=== PATIENT | female | born 1985 | race Caucasian/White ===

== ENCOUNTER 2024-03-31 20:35 | Inpatient (IN) | payer MEDICAID ==
[~2024-03-31] VITALS: Ht 160 cm; Wt 156.0 kg
[2024-03-31 22:39] LABS: BASOPHILS % (AUTO) 0.5 % (0.0-2.0); EOSINOPHILS % (AUTO) 2.1 % (1.0-6.0); HEMATOCRIT 32.2 % (36-46); HEMOGLOBIN 10.3 g/dL (12.0-16.0); LYMPHOCYTES # (AUTO) 3.2 K/uL (1.0-4.8); LYMPHOCYTES % (AUTO) 26.5 % (22.0-44.0); MEAN CORPUSCULAR HEMOGLOBIN 26.2 pg (26.0-34.0); MEAN CORPUSCULAR VOLUME 82 fL (80-100); MONOCYTES # (AUTO) 0.8 K/uL (0.1-1.0); MONOCYTES % (AUTO) 6.9 % (2.0-9.0); NEUTROPHILS # (AUTO) 7.8 K/uL (1.8-7.7); PLATELET COUNT (AUTO) 362 K/uL (150-450); RED BLOOD CELL COUNT(AUTO) 3.93 MIL/uL (4.00-5.20); RED CELL DISTRIBUTION WIDTH 18.2 % (11.5-14.5); WHITE BLOOD COUNT (AUTO) 12.2 K/uL (4.5-11.0)
[2024-03-31 22:52] LABS: ANION GAP 7 mmol/L (8-16); CALCIUM, TOTAL 8.2 mg/dL (8.8-10.5); CARBON DIOXIDE 27 mmol/L (22-29); CHLORIDE 102 mmol/L (98-107); CREATININE 0.69 mg/dL (0.60-1.30); GLOMERULAR FILTR. RATE CALC > 60 mL/min (>60); GLUCOSE,RANDOM 139 mg/dL (70-110); POTASSIUM 4.1 mmol/L (3.5-5.1); SODIUM SERUM 136 mmol/L (136-145); UREA NITROGEN, BLOOD 23 mg/dL (7-18)
[2024-03-31 23:11] LABS: ALCOHOL, BLOOD (SERUM) < 3 mg/dL (0-10)
[2024-04-01 01:51] LABS: COVID AG,FIA SOURCE NASAL SWAB
[2024-04-01] MEDS: MELATONIN 3 MG TABLET PO ONE (01:53)
[2024-04-01 01:58] LABS: SARS-COV2 (COVID) ANTIGEN,FIA Negative (Negative)
[2024-04-01] MEDS: LORazepam 1 MG TABLET PO ONE (02:48)
[2024-04-01 03:08] LABS: PH,URINE DRUG SCREEN 6.5 (5.0-8.0)
[2024-04-01 03:14] LABS: ALCOHOL, URINE DRUG SCREEN NEGATIVE (NEGATIVE); AMPHET/METH SCREEN,URINE NEGATIVE (NEGATIVE); BARBITURATE SCREEN, URINE NEGATIVE (NEGATIVE); BENZODIAZEPINES SCREEN,URINE NEGATIVE (NEGATIVE); CANNABINOID SCREEN,URINE NEGATIVE (NEGATIVE); COCAINE SCREEN,URINE NEGATIVE (NEGATIVE); METHADONE SCREEN, URINE NEGATIVE (NEGATIVE); OPIATE SCREEN,URINE NEGATIVE (NEGATIVE); PHENCYCLIDINE SCREEN,URINE NEGATIVE (NEGATIVE)
[2024-04-01] MEDS: QUEtiapine FUMARATE 25 MG TABLET PO ONE (04:15)
[2024-04-01] MEDS: QUEtiapine FUMARATE 100 MG TABLET PO ONE (10:52)
[2024-04-01] MEDS: IBUPROFEN 600 MG TABLET PO ONE (10:52)
[2024-04-01 16:26] VITALS: BP 121/76; PULSE 121; RESP 18; TEMP 98.4
[2024-04-01] MEDS: LORazepam 2 MG TABLET PO PRN (20:19)
[2024-04-01] MEDS: ZOLPIDEM TARTRATE 10 MG TABLET PO PRN (20:40)
[2024-04-01 23:28] VITALS: BP 120/77; PULSE 99; RESP 18; TEMP 98
[2024-04-02] MEDS: HALOPERIDOL 5 MG TABLET PO PRN (04:09)
[2024-04-02] MEDS ORDERED: CloNIDine HCL 0.1 MG TABLET PO PRN (08:15)
[2024-04-02] MEDS ORDERED: MAG HYDROX/ALUMINUM HYD/SIMETH ES 30 ML SUSPENSION UDCUP PO PRN (08:15)
[2024-04-02] MEDS ORDERED: PETROLATUM,WHITE 28 GM JELLY TP PRN (08:15)
[2024-04-02] MEDS ORDERED: GuaiFENesin/D-METHORPHAN [SUGAR-FREE] 200-20MG/10 ML SYRUP UDCUP PO PRN (08:15)
[2024-04-02] MEDS ORDERED: DOCUSATE SODIUM 100 MG CAPSULE PO PRN (08:15)
[2024-04-02] MEDS ORDERED: ACETAMINOPHEN 325 MG TABLET PO PRN (08:15)
[2024-04-02] MEDS ORDERED: ALBUTEROL SULFATE HFA 90 MCG/PUFF 8 GM INHALER IH PRN (08:15)
[2024-04-02] MEDS ORDERED: NICOTINE 14 MG/24 HOUR PATCH TD PRN (08:15)
[2024-04-02] MEDS ORDERED: LOPERAMIDE HCL 2 MG CAPSULE PO PRN (08:15)
[2024-04-02] MEDS ORDERED: MAGNESIUM HYDROXIDE SUSPENSION 30 ML UDCUP PO PRN (08:15)
[2024-04-02] MEDS ORDERED: ONDANSETRON HCL 4 MG TABLET PO PRN (08:15)
[2024-04-02 08:49] VITALS: BP 115/74; PULSE 110; RESP 18; TEMP 98.4
[2024-04-02] MEDS: QUEtiapine FUMARATE 100 MG TABLET PO PRN (17:43)
[2024-04-02] MEDS ORDERED: DiphenhydrAMINE HCL 50 MG/ML VIAL ONE (18:16)
[2024-04-02] MEDS ORDERED: ChlorproMAZINE HCL 50 MG/2 ML AMP ONE (18:16)
[2024-04-02] MEDS: ChlorproMAZINE HCL 50 MG/2 ML AMP IM ONE (19:33)
[2024-04-02] MEDS: DiphenhydrAMINE HCL 50 MG/ML VIAL IM ONE (19:33)
[2024-04-02 20:00] VITALS: BP 114/67; PULSE 114; RESP 16; TEMP 96.6; O2SAT 97
[2024-04-02] MEDS: TraZODone HCL 150 MG TABLET PO SCH (21:00)
[2024-04-02] MEDS: ARIPiprazole 15 MG TABLET PO SCH (21:52)
[2024-04-03 03:08] VITALS: BP 144/86; PULSE 111; RESP 20; TEMP 98.1; O2SAT 97
[2024-04-03 08:43] VITALS: BP 118/77; PULSE 116; RESP 16; TEMP 98.1; O2SAT 98
[2024-04-03 08:43] LABS: HEMOGLOBIN A1C 7.1 % (3.8-5.6)
[2024-04-03 09:03] LABS: CHOL/HDL RATIO 3.7 (3.9-5.7); THYROID STIMULATING HORMONE 3.84 uIU/mL (0.36-3.74)
[2024-04-03] MEDS: TOPIRAMATE 100 MG TABLET PO SCH (12:54)
[2024-04-03] MEDS: GABAPENTIN 300 MG CAPSULE PO SCH (12:54)
[2024-04-03] MEDS: LORazepam 2 MG/ML VIAL IM ONE (14:03)
[2024-04-03] MEDS: HALOPERIDOL LACTATE 5 MG/ML VIAL IM ONE (14:03)
[2024-04-03] MEDS: DiphenhydrAMINE HCL 50 MG/ML VIAL IM ONE (14:03)
[2024-04-03 20:44] VITALS: BP 121/67; PULSE 105; RESP 18; TEMP 98.1; O2SAT 97
[2024-04-04 01:50] VITALS: BP 119/71; RESP 18
[2024-04-04] MEDS: IBUPROFEN 400 MG TABLET PO PRN (01:55)
[2024-04-04 08:15] VITALS: BP 108/77; PULSE 78; RESP 22; TEMP 98; O2SAT 99
[2024-04-04 11:09] VITALS: RESP 22; O2SAT 99
[2024-04-04 12:09] VITALS: RESP 21; O2SAT 99
[2024-04-04 20:00] VITALS: BP 112/75; PULSE 90; RESP 20; TEMP 97.4; O2SAT 97
[2024-04-05 08:19] LABS: BASOPHILS % (AUTO) 0.7 % (0.0-2.0); HEMATOCRIT 35.9 % (36-46); HEMOGLOBIN 11.5 g/dL (12.0-16.0); LYMPHOCYTES # (AUTO) 2.1 K/uL (1.0-4.8); LYMPHOCYTES % (AUTO) 19.9 % (22.0-44.0); MEAN CORPUSCULAR HEMOGLOBIN 26.7 pg (26.0-34.0); MEAN CORPUSCULAR VOLUME 83 fL (80-100); MONOCYTES # (AUTO) 0.7 K/uL (0.1-1.0); MONOCYTES % (AUTO) 6.7 % (2.0-9.0); NEUTROPHILS # (AUTO) 7.3 K/uL (1.8-7.7); NEUTROPHILS % (AUTO) 69.7 % (40.0-70.0); PLATELET COUNT (AUTO) 409 K/uL (150-450); RED BLOOD CELL COUNT(AUTO) 4.31 MIL/uL (4.00-5.20); RED CELL DISTRIBUTION WIDTH 18.1 % (11.5-14.5); WHITE BLOOD COUNT (AUTO) 10.5 K/uL (4.5-11.0)
[2024-04-05 08:29] LABS: APPEARANCE,URINE CLEAR (CLEAR); BILIRUBIN,URINE NEGATIVE (NEGATIVE); COLOR,URINE LIGHT YELLOW (YELLOW); GLUCOSE, URINE (UA) NEGATIVE (NEGATIVE); KETONES,URINE NEGATIVE (NEGATIVE); LEUKOCYTE ESTERASE ,URINE NEGATIVE (NEGATIVE); NITRATE,URINE NEGATIVE (NEGATIVE); OCCULT BLOOD,URINE NEGATIVE (NEGATIVE); PROTEIN,URINE NEGATIVE (NEGATIVE); SPECIFIC GRAVITIY, URINE 1.016 (1.003-1.030); UROBILINOGEN,URINE <=1.0 mg/dL (<=1.0)
[2024-04-05 08:38] LABS: ALCOHOL, URINE DRUG SCREEN NEGATIVE (NEGATIVE); AMPHET/METH SCREEN,URINE NEGATIVE (NEGATIVE); BARBITURATE SCREEN, URINE NEGATIVE (NEGATIVE); BENZODIAZEPINES SCREEN,URINE NEGATIVE (NEGATIVE); CANNABINOID SCREEN,URINE NEGATIVE (NEGATIVE); COCAINE SCREEN,URINE NEGATIVE (NEGATIVE); METHADONE SCREEN, URINE NEGATIVE (NEGATIVE); OPIATE SCREEN,URINE NEGATIVE (NEGATIVE); PHENCYCLIDINE SCREEN,URINE NEGATIVE (NEGATIVE)
[2024-04-05 09:20] VITALS: BP 142/90; PULSE 90; RESP 17; TEMP 97.9; O2SAT 99
[2024-04-05 16:18] VITALS: BP 127/79; PULSE 116; RESP 16; TEMP 97.3; O2SAT 97
[2024-04-05 16:55] VITALS: BP 135/80; PULSE 113; RESP 16; TEMP 97.2; O2SAT 97
[2024-04-05 17:10] VITALS: BP 135/84; PULSE 102; RESP 16; TEMP 97.3; O2SAT 97
[2024-04-05 17:30] VITALS: BP_SYST 122; BP_SYST 127; BP_DIAS 67; BP_DIAS 79; PULSE 108; PULSE 116; RESP 16; TEMP 97.3; TEMP 97.8; O2SAT 97; O2SAT 98
[2024-04-06] VITALS (11 sets, daily range): BP systolic 99–156; BP diastolic 59–101; PULSE 85–110; RESP 16–20; TEMP 98–98.6; O2SAT 96–100
[2024-04-07 08:45] VITALS: BP 131/90; PULSE 100; RESP 18; TEMP 98.3; O2SAT 100
[2024-04-07 15:30] VITALS: BP 131/90; PULSE 100; RESP 18; TEMP 98.3; O2SAT 100
[2024-04-07 20:34] VITALS: BP 122/80; PULSE 98; RESP 18; TEMP 98.1; O2SAT 98
[2024-04-08] VITALS (10 sets, daily range): BP systolic 102–153; BP diastolic 69–122; PULSE 90–108; RESP 17–20; TEMP 97.7–98.3; O2SAT 96–99
[2024-04-08 08:31] LABS: TROPONIN I-HIGH SENSITIVITY Less Than 4 ng/L (<51)
[2024-04-08] MEDS ORDERED: TOPI100T37 PO (17:33)
[2024-04-08] MEDS ORDERED: TRAZ-283 PO (17:33)
[2024-04-08] MEDS ORDERED: GABA-1181 PO (17:33)
[2024-04-08] MEDS ORDERED: ARIP15TA27 PO (17:33)
== END 2024-04-08 21:32 | disposition home or self-care (01) | DRG 750 ==
LOC: EMS 20:35 → B3A 04-01 10:04 → B2S 04-01 17:27
PROVIDERS: ADMIT Psychiatry & Neurology Psychiatry; ATTEND Psychiatry & Neurology Psychiatry
DX: F25.0 Schizoaffective disorder, bipolar type (principal); R45.851 Suicidal ideations; Z68.44 Body mass index [BMI] 60.0-69.9, adult; E05.90 Thyrotoxicosis, unspecified without thyrotoxic crisis or storm; E66.01 Morbid (severe) obesity due to excess calories; G47.00 Insomnia, unspecified; Z20.822 Contact with and (suspected) exposure to COVID-19; D72.829 Elevated white blood cell count, unspecified; D64.9 Anemia, unspecified; Z79.899 Other long term (current) drug therapy; Z91.51 Personal history of suicidal behavior
CPT/HCPCS: 80048; 80061; 80307; 81003; 83036; 84443; 84484; 84703; 85025; 99285; G0480; J1200; J1630; J2060; J3230

== ENCOUNTER 2024-04-02 20:40 | Emergency (ER) | payer MEDICAID ==
[~2024-04-02] VITALS: Ht 160 cm; Wt 159.1 kg
[2024-04-02 22:02] VITALS: BP 117/74; PULSE 110; RESP 18; TEMP 98
[2024-04-03] MEDS: ACETAMINOPHEN 500 MG TABLET PO ONE (00:04)
== END 2024-04-03 01:15 ==
LOC: EMS 20:40
DX: S09.90XA Unspecified injury of head, initial encounter (principal); E05.90 Thyrotoxicosis, unspecified without thyrotoxic crisis or storm; X58.XXXA Exposure to other specified factors, initial encounter; Y93.89 Activity, other specified; Y92.89 Other specified places as the place of occurrence of the external cause; Y99.8 Other external cause status
CPT/HCPCS: 70450; 72125; 99284

== ENCOUNTER 2024-04-05 18:07 | Emergency (ER) | payer MEDICAID ==
[~2024-04-05] VITALS: Ht 160 cm; Wt 159.1 kg
[2024-04-05 23:16] VITALS: TEMP 98.5
[2024-04-06 00:35] VITALS: BP 133/78; PULSE 88; RESP 16
== END 2024-04-06 01:09 ==
LOC: EMS 18:07
DX: S09.90XA Unspecified injury of head, initial encounter (principal); W22.8XXA Striking against or struck by other objects, initial encounter; Y93.89 Activity, other specified; Y92.89 Other specified places as the place of occurrence of the external cause; Y99.8 Other external cause status
CPT/HCPCS: 70450; 99284